=== PATIENT | female | born 1975 | race Caucasian/White ===

== ENCOUNTER 2019-03-08 09:49 | Inpatient (IN) | payer OTHER ==
[~2019-03-08] VITALS: Ht 172.7 cm; Wt 67.8 kg
[~2019-03-08 09:49] MED LIST: ACEBUTCAFT PO; ALPR1; ALPR1 PO; AMIT50; ARIP15 PO; BISA5EC PO; CLON1 PO; CRUTCH4 USE; CYCL10 PO; DULO30; DULO60 PO; GABA300 PO; HYDACE10B PO; HYDACE5; HYDACE5 PO; IBUP400 PO; NAPR500 PO; OXYACE5T PO; OXYC10ER PO; OXYC5 PO; QUET100; QUET25 PO; RANI150; SEROQUEL; SERT100 PO; SULTRIDS PO; TRAM50 PO; TRAZ50 PO; XANAX PRN; [UNRECOGNIZED DRUG - REMARK]
[2019-03-08] MEDS ORDERED: CYCL10 PO (15:12)
[2019-03-08] MEDS ORDERED: CITA20 PO (15:12)
[2019-03-08] MEDS ORDERED: ZOLP10 PO (15:12)
[2019-03-08 15:17] LABS: BASOPHILS ABSOLUTE AUTO 0.12 K/mm3 (0.00-0.23); BASOPHILS PERCENT AUTO 0 % (0-2); EOSINOPHILS PERCENT AUTO 0 % (0-6); Hematocrit 35.3 % (33.0-51.0); Hemoglobin 11.7 g/dL (11.5-16.0); IMMATURE GRAN ABSOLUTE AUTO 0.52 K/mm3 (0.00-0.10); IMMATURE GRAN PERCENT AUTO 1 % (0-1); LYMPHOCYTES ABSOLUTE AUTO 2.55 K/mm3 (0.84-5.20); LYMPHOCYTES PERCENT AUTO 6 % (21-46); MONOCYTES ABSOLUTE AUTO 3.22 K/mm3 (0.16-1.47); MONOCYTES PERCENT AUTO 7 % (4-13); Mean Corpuscular HGB 32.1 pg (26.0-34.0); Mean Corpuscular HGB Conc 33.1 g/dL (31.5-36.5); Mean Corpuscular Volume 97 fL (80-100); Mean Platelet Volume 10.1 fL (9.1-12.4); NEUTROPHILS ABSOLUTE AUTO 37.15 K/mm3 (1.96-9.15); NEUTROPHILS PERCENT AUTO 85 % (41-73); Platelet Count 381 K/mm3 (150-400); RDW Coefficient Variation 12.1 % (11.7-14.2); RDW Standard Deviation 42.9 fL (35.1-46.3); Red Blood Cell Count 3.64 M/mm3 (3.80-5.20); White Blood Cell Count 43.56 K/mm3 (4.00-11.30)
[2019-03-08 15:34] LABS: Alanine Aminotransfer (ALT/SGP 45 U/L (12-78); Albumin, Blood 4.5 g/dL (3.4-5.0); Albumin/Globulin Ratio 1.1 (0.8-1.8); Alk Phos 77 U/L (50-136); Anion Gap 12 mmol/L (6-16); Aspartate Aminotrans (AST/SGOT 105 U/L (12-37); Bilirubin, Total 0.9 mg/dL (0.1-1.0); Blood Urea Nitrogen 44 mg/dL (8-24); CO2, Blood 19 mmol/L (21-32); Calcium, Blood 9.2 mg/dL (8.5-10.1); Chloride, Blood 101 mmol/L (98-108); Creatinine, Blood 0.94 mg/dL (0.40-1.00); Glomerular Filtration Rate >60 (60-); Glucose, Blood 123 mg/dL (70-99); Potassium, Blood 4.4 mmol/L (3.5-5.5); Sodium, Blood 132 mmol/L (136-145); Total Protein, Blood 8.5 g/dL (6.4-8.2)
[2019-03-08 16:11] LABS: Source, Urine Catheter
[2019-03-08 16:22] LABS: Appearance, Urine Clear (Clear); Bilirubin, Urine Neg (Neg); Blood, Urine 3+ (Neg); Color, Urine Yellow (P-Yellow); Glucose Qualitative, Urine Neg (Neg); Ketones, Urine 4+ (Neg); Leukocyte Esterase, Urine Neg (Neg); Nitrite, Urine Neg (Neg); Protein, Urine 1+ (Neg); Specific Gravity, Urine 1.015 (1.003-1.022); Urobilinogen, Urine NORM (Normal)
[2019-03-08 16:56] LABS: Bacteria Few /hpf; Squamous Epithelial Cells Not Seen /hpf (Few); White Blood Cells, Urine 0-2 /hpf (0-5)
[2019-03-08 17:36] LABS: Ethanol (Alcohol), Blood, Med <3 mg/dL; Salicylate 3.6 mg/dL (2.8-20.0)
[2019-03-08 17:39] LABS: Acetaminophen, Random <2.0 ug/mL (10.0-30.0)
[2019-03-08 19:07] LABS: U Amphetamine Screen DETECTED; U Barbituate Screen Not Detected; U Benzodiazapine Screen Not Detected; U Buprenorphine Screen Not Detected; U Cannabinoids Screen DETECTED; U Cocaine Screen Not Detected; U Methadone Screen Not Detected; U Methamphetamine Screen DETECTED; U Opiates Screen Not Detected; U Oxycodone Screen Not Detected; U Phencyclidine Screen Not Detected; U Propoxyphene Screen Not Detected
[2019-03-08 21:58] LABS: Creatine Kinase MB 85.6 ng/mL (0.0-3.6); Creatine Kinase MB Index 2.7 (0.0-4.0)
[2019-03-09 04:07] LABS: BASOPHILS ABSOLUTE AUTO 0.06 K/mm3 (0.00-0.23); BASOPHILS PERCENT AUTO 0 % (0-2); EOSINOPHILS ABSOLUTE AUTO 0.16 K/mm3 (0.00-0.68); EOSINOPHILS PERCENT AUTO 1 % (0-6); Hematocrit 32.4 % (33.0-51.0); Hemoglobin 11.1 g/dL (11.5-16.0); IMMATURE GRAN ABSOLUTE AUTO 0.17 K/mm3 (0.00-0.10); IMMATURE GRAN PERCENT AUTO 1 % (0-1); LYMPHOCYTES ABSOLUTE AUTO 2.58 K/mm3 (0.84-5.20); LYMPHOCYTES PERCENT AUTO 10 % (21-46); MONOCYTES ABSOLUTE AUTO 1.83 K/mm3 (0.16-1.47); MONOCYTES PERCENT AUTO 7 % (4-13); Mean Corpuscular HGB 32.6 pg (26.0-34.0); Mean Corpuscular HGB Conc 34.3 g/dL (31.5-36.5); Mean Corpuscular Volume 95 fL (80-100); NEUTROPHILS ABSOLUTE AUTO 21.77 K/mm3 (1.96-9.15); NEUTROPHILS PERCENT AUTO 82 % (41-73); Platelet Count 340 K/mm3 (150-400); RDW Coefficient Variation 12.1 % (11.7-14.2); White Blood Cell Count 26.57 K/mm3 (4.00-11.30)
[2019-03-09 04:26] LABS: Alanine Aminotransfer (ALT/SGP 38 U/L (12-78); Albumin, Blood 3.7 g/dL (3.4-5.0); Alk Phos 66 U/L (50-136); Anion Gap 9 mmol/L (6-16); Aspartate Aminotrans (AST/SGOT 77 U/L (12-37); Bilirubin, Total 0.5 mg/dL (0.1-1.0); Blood Urea Nitrogen 24 mg/dL (8-24); Bun/Creatinine Ratio 46.7 (12.0-20.0); CO2, Blood 23 mmol/L (21-32); Calcium, Blood 8.1 mg/dL (8.5-10.1); Chloride, Blood 106 mmol/L (98-108); Creatinine, Blood 0.51 mg/dL (0.40-1.00); Globulin, Blood 3.8 g/dL (2.2-4.0); Glomerular Filtration Rate >60 (60-); Glucose, Blood 75 mg/dL (70-99); Potassium, Blood 3.6 mmol/L (3.5-5.5); Sodium, Blood 138 mmol/L (136-145); Total Protein, Blood 7.5 g/dL (6.4-8.2)
--- NOTE | 2019-03-09 04:44 | NUR ---
END OF SHIFT SUMMARY ASSUMED CARE OF PT FROM ED. WITH PT WHEN TRANSPORTED. PT ALERT AND TALKING WITH STAFF, EXTREMITIES MOVING WITHOUT PURPOSE/CONTROL "FLAILING". PT AWARE OF SITUATION. STATES THIS IS DUE TO "METH FROM A DIFFERENT DEALER". AT TIMES, PT IS ABLE TO CONTROL MOVEMENTS. PT GIVES APPROPRIATE VERBAL RESPONSES TO QUESTIONS. MIDDLEKAUFF CONSULT PLACED, FACE SHEET TO ED. SEIZURE PADS IN PLACE. IV FLUIDS INFUSING. PT DRINKING/EATING. HAS VOIDED IN BSC AND HAD BM. PT GIVEN SL ATIVAN. PT WAS ABLE TO SLEEP POST MEDICATION. WHEN AWAKE FOR LAB, PT APPEARS TO HAVE GREATER MUSCLE CONTROL, LESS "FLAILING". PT HAS DENIED ANY PAIN. IV ABX ADMINISTERED. PT NBOTED TO HAVE MUILTIPLE BRUISES BILATERAL LEGS, PT STATES THESE ARE FROM HER BEING "CLUMSY" AND WORKING IN THE GARDEN. PHOTOS PLACED IN CHART. CALL LIGHT WOTHIN REACH, WILL CONTINUE TO MONIT PT UNTIL SHIFT CHANGE. VSS.
== END 2019-03-09 10:50 | disposition left against medical advice (07) | DRG 917 ==
LOC: ER 09:49 → ERHOLD 16:11 → PCU 16:11 → EDBEDREQ 17:47 → PCU 20:20
PROVIDERS: Emergency Medicine; ADMIT Internal Medicine
DX: T43.621A Poisoning by amphetamines, accidental (unintentional), initial encounter (principal); G92 Toxic encephalopathy; E87.2 Acidosis; M62.82 Rhabdomyolysis; F17.200 Nicotine dependence, unspecified, uncomplicated; R31.9 Hematuria, unspecified; D72.829 Elevated white blood cell count, unspecified; T07.XXXA Unspecified multiple injuries, initial encounter; F32.9 Major depressive disorder, single episode, unspecified; F43.10 Post-traumatic stress disorder, unspecified; F39 Unspecified mood [affective] disorder; G25.5 Other chorea; R79.89 Other specified abnormal findings of blood chemistry
CPT/HCPCS: 36415; 71045; 80053; 81001; 82550; 82553; 83605; 85025; 87040; 96372; 99285-25; G0480; J0696; J1200; J7030; J7120; P9612

== ENCOUNTER 2020-09-02 13:36 | Emergency (ER) | payer OTHER ==
[~2020-09-02] VITALS: Ht 172.7 cm; Wt 81.7 kg
[~2020-09-02 13:36] MED LIST changes: +CITA20 PO; +ZOLP10 PO
[2020-09-02] MEDS ORDERED: TRAZ50 PO (13:45)
[2020-09-02 14:23] LABS: Source, Urine Clean Catch
[2020-09-02 14:29] LABS: Appearance, Urine Clear (Clear); Bilirubin, Urine Neg (Neg); Blood, Urine 2+ (Neg); Color, Urine Yellow (P-Yellow); Glucose Qualitative, Urine Neg (Neg); Ketones, Urine 4+ (Neg); Leukocyte Esterase, Urine Neg (Neg); Nitrite, Urine Neg (Neg); Protein, Urine Neg (Neg); Urobilinogen, Urine NORM (Normal); pH, Urine 6.5 (5.0-8.0)
[2020-09-02 14:31] LABS: BASOPHILS ABSOLUTE AUTO 0.07 K/mm3 (0.00-0.23); BASOPHILS PERCENT AUTO 1 % (0-2); EOSINOPHILS ABSOLUTE AUTO 0.69 K/mm3 (0.00-0.68); EOSINOPHILS PERCENT AUTO 5 % (0-6); Hematocrit 38.5 % (33.0-51.0); Hemoglobin 12.9 g/dL (11.5-16.0); IMMATURE GRAN ABSOLUTE AUTO 0.03 K/mm3 (0.00-0.10); IMMATURE GRAN PERCENT AUTO 0 % (0-1); LYMPHOCYTES ABSOLUTE AUTO 1.85 K/mm3 (0.84-5.20); LYMPHOCYTES PERCENT AUTO 14 % (21-46); MONOCYTES ABSOLUTE AUTO 1.05 K/mm3 (0.16-1.47); MONOCYTES PERCENT AUTO 8 % (4-13); Mean Corpuscular HGB 31.2 pg (26.0-34.0); Mean Corpuscular HGB Conc 33.5 g/dL (31.5-36.5); Mean Corpuscular Volume 93 fL (80-100); Mean Platelet Volume 9.6 fL (9.1-12.4); NEUTROPHILS ABSOLUTE AUTO 10.03 K/mm3 (1.96-9.15); NEUTROPHILS PERCENT AUTO 73 % (41-73); Platelet Count 619 K/mm3 (150-400); RDW Coefficient Variation 11.2 % (11.7-14.2); RDW Standard Deviation 38.4 fL (35.1-46.3); Red Blood Cell Count 4.14 M/mm3 (3.80-5.20); White Blood Cell Count 13.72 K/mm3 (4.00-11.30)
[2020-09-02 14:56] LABS: Alanine Aminotransfer (ALT/SGP 16 U/L (12-78); Albumin, Blood 3.3 g/dL (3.4-5.0); Albumin/Globulin Ratio 0.6 (0.8-1.8); Alk Phos 77 U/L (50-136); Anion Gap 9 mmol/L (6-16); Aspartate Aminotrans (AST/SGOT 40 U/L (12-37); Bilirubin, Total 0.4 mg/dL (0.1-1.0); Blood Urea Nitrogen 4 mg/dL (8-24); Bun/Creatinine Ratio 8.2 (12.0-20.0); CO2, Blood 23 mmol/L (21-32); Calcium, Blood 9.2 mg/dL (8.5-10.1); Chloride, Blood 104 mmol/L (98-108); Creatinine, Blood 0.49 mg/dL (0.40-1.00); Globulin, Blood 5.3 g/dL (2.2-4.0); Glomerular Filtration Rate >60 (60-); Glucose, Blood 109 mg/dL (70-99); Potassium, Blood 4.4 mmol/L (3.5-5.5); Sodium, Blood 136 mmol/L (136-145); Total Protein, Blood 8.6 g/dL (6.4-8.2)
[2020-09-02 15:03] LABS: Bacteria Mod /hpf; Squamous Epithelial Cells Few /hpf (Few); White Blood Cells, Urine 0-2 /hpf (0-5)
[2020-09-02 16:21] LABS: U Amphetamine Screen Not Detected; U Barbituate Screen Not Detected; U Benzodiazapine Screen Not Detected; U Buprenorphine Screen DETECTED; U Cannabinoids Screen Not Detected; U Cocaine Screen Not Detected; U Methadone Screen Not Detected; U Methamphetamine Screen Not Detected; U Opiates Screen Not Detected; U Oxycodone Screen Not Detected; U Phencyclidine Screen Not Detected; U Propoxyphene Screen Not Detected
[2020-09-02] MEDS ORDERED: Roxicodone5 MG PO (17:02)
== END 2020-09-02 17:23 | disposition home or self-care (01) ==
LOC: ER 13:36
PROVIDERS: Emergency Medicine
DX: K85.90 Acute pancreatitis without necrosis or infection, unspecified (principal); R91.8 Other nonspecific abnormal finding of lung field; Z79.899 Other long term (current) drug therapy; Z87.891 Personal history of nicotine dependence
CPT/HCPCS: 36415; 74177; 76705; 80053; 81001; 83690; 84484; 85025; 87086; 93005; 93010; 96374-59; 96375; 96376; 99284-25; J1170; J2405; J7030; Q9967

== ENCOUNTER 2020-09-23 23:31 | Inpatient (IN) | payer OTHER ==
[~2020-09-23] VITALS: Ht 172.7 cm; Wt 86.0 kg
[~2020-09-23 23:31] MED LIST changes: +Roxicodone5 MG PO
[2020-09-23 23:47] LABS: PCO2 Arterial 47.3 mmHg (35-45); PO2 Arterial 167 mmHg (80-100); pH Blood Arterial 7.34 (7.35-7.45)
[2020-09-23 23:52] LABS: BASOPHILS ABSOLUTE AUTO 0.07 K/mm3 (0.00-0.23); BASOPHILS PERCENT AUTO 0 % (0-2); EOSINOPHILS ABSOLUTE AUTO 0.48 K/mm3 (0.00-0.68); EOSINOPHILS PERCENT AUTO 3 % (0-6); Hematocrit 40.3 % (33.0-51.0); Hemoglobin 12.7 g/dL (11.5-16.0); IMMATURE GRAN ABSOLUTE AUTO 0.13 K/mm3 (0.00-0.10); IMMATURE GRAN PERCENT AUTO 1 % (0-1); LYMPHOCYTES ABSOLUTE AUTO 1.38 K/mm3 (0.84-5.20); LYMPHOCYTES PERCENT AUTO 7 % (21-46); MONOCYTES ABSOLUTE AUTO 1.46 K/mm3 (0.16-1.47); MONOCYTES PERCENT AUTO 8 % (4-13); Mean Corpuscular HGB 29.4 pg (26.0-34.0); Mean Corpuscular HGB Conc 31.5 g/dL (31.5-36.5); Mean Corpuscular Volume 93 fL (80-100); NEUTROPHILS ABSOLUTE AUTO 15.89 K/mm3 (1.96-9.15); NEUTROPHILS PERCENT AUTO 82 % (41-73); Platelet Count 684 K/mm3 (150-400); RDW Coefficient Variation 11.7 % (11.7-14.2); RDW Standard Deviation 39.8 fL (35.1-46.3); Red Blood Cell Count 4.32 M/mm3 (3.80-5.20); White Blood Cell Count 19.41 K/mm3 (4.00-11.30)
[2020-09-24 00:11] LABS: Alanine Aminotransfer (ALT/SGP 32 U/L (12-78); Albumin, Blood 2.9 g/dL (3.4-5.0); Albumin/Globulin Ratio 0.5 (0.8-1.8); Alk Phos 114 U/L (50-136); Anion Gap 9 mmol/L (6-16); Aspartate Aminotrans (AST/SGOT 114 U/L (12-37); Bilirubin, Total 0.5 mg/dL (0.1-1.0); Blood Urea Nitrogen 10 mg/dL (8-24); Bun/Creatinine Ratio 17.3 (12.0-20.0); CO2, Blood 27 mmol/L (21-32); Calcium, Blood 9.3 mg/dL (8.5-10.1); Chloride, Blood 101 mmol/L (98-108); Creatinine, Blood 0.58 mg/dL (0.40-1.00); Globulin, Blood 5.7 g/dL (2.2-4.0); Glomerular Filtration Rate >60 (60-); Glucose, Blood 124 mg/dL (70-99); Potassium, Blood 4.9 mmol/L (3.5-5.5); Sodium, Blood 137 mmol/L (136-145); Total Protein, Blood 8.6 g/dL (6.4-8.2); Troponin I <0.015 ng/mL (0.000-0.040)
[2020-09-24 00:53] LABS: Influenza A, PCR Negative (NEGATIVE); Influenza B, PCR Negative (NEGATIVE); Resp Syncytial Virus, PCR Negative (NEGATIVE); SARS-Cov-2 (COVID-19) PCR, MMC Negative (NEGATIVE)
[2020-09-24 05:39] LABS: BASOPHILS ABSOLUTE AUTO 0.03 K/mm3 (0.00-0.23); BASOPHILS PERCENT AUTO 0 % (0-2); EOSINOPHILS ABSOLUTE AUTO 0.01 K/mm3 (0.00-0.68); EOSINOPHILS PERCENT AUTO 0 % (0-6); Hemoglobin 12.1 g/dL (11.5-16.0); IMMATURE GRAN ABSOLUTE AUTO 0.09 K/mm3 (0.00-0.10); IMMATURE GRAN PERCENT AUTO 1 % (0-1); LYMPHOCYTES PERCENT AUTO 3 % (21-46); MONOCYTES ABSOLUTE AUTO 0.21 K/mm3 (0.16-1.47); MONOCYTES PERCENT AUTO 1 % (4-13); Mean Corpuscular HGB Conc 31.8 g/dL (31.5-36.5); Mean Corpuscular Volume 94 fL (80-100); Mean Platelet Volume 9.3 fL (9.1-12.4); NEUTROPHILS ABSOLUTE AUTO 17.53 K/mm3 (1.96-9.15); NEUTROPHILS PERCENT AUTO 95 % (41-73); Platelet Count 658 K/mm3 (150-400); RDW Coefficient Variation 11.7 % (11.7-14.2); RDW Standard Deviation 40.1 fL (35.1-46.3); Red Blood Cell Count 4.03 M/mm3 (3.80-5.20); White Blood Cell Count 18.47 K/mm3 (4.00-11.30)
[2020-09-24] MEDS ORDERED: Zanaflex2 M1 PO (05:57)
[2020-09-24] MEDS ORDERED: MECL12.5 PO (05:58)
[2020-09-24] MEDS ORDERED: ONDA4 PO (05:58)
[2020-09-24] MEDS ORDERED: Synthroid200 MCG (05:58)
[2020-09-24 05:59] LABS: Alanine Aminotransfer (ALT/SGP 29 U/L (12-78); Albumin, Blood 2.7 g/dL (3.4-5.0); Albumin/Globulin Ratio 0.5 (0.8-1.8); Alk Phos 116 U/L (50-136); Anion Gap 11 mmol/L (6-16); Aspartate Aminotrans (AST/SGOT 75 U/L (12-37); Bilirubin, Total 0.4 mg/dL (0.1-1.0); Blood Urea Nitrogen 9 mg/dL (8-24); Bun/Creatinine Ratio 19.9 (12.0-20.0); CO2, Blood 24 mmol/L (21-32); Chloride, Blood 102 mmol/L (98-108); Creatinine, Blood 0.45 mg/dL (0.40-1.00); Globulin, Blood 5.5 g/dL (2.2-4.0); Glomerular Filtration Rate >60 (60-); Glucose, Blood 146 mg/dL (70-99); Potassium, Blood 4.1 mmol/L (3.5-5.5); Sodium, Blood 137 mmol/L (136-145); Total Protein, Blood 8.2 g/dL (6.4-8.2)
--- NOTE | 2020-09-24 06:47 | NUR ---
ADMIT AND SHIFT SUMMARY PT TO UNIT FROM ED. C/O SEVERE ABD PAIN/GENERALIZED. PT STATES THIS IS SAME LEVEL OF PAIN X2 WEEKS. AXO. IN SINUS TACH. HTN. ON 3LNC, SPO2 >92%. RR 20-30. LUNG SOUND EXTREMELY DIMINISHED WITH CRACKLES. PAIN MEDS GIVEN PER EMAR, LITTLE EFFECT NOTED. ADMISSION COMPLETE EXCEPT HOME MED REC, PT NOT ABLE TO COMPLETE ALL THE WAY. PT UPDATED TO ROOM AND HOSPITAL PROCEDURE. PT NOW IN BED TRYING TO REST BUT DIFFICULT WITH PAIN. THIS RN ATTEMPTING TO GIVE MORE PAIN MEDS WITHIN EMAR PARAMETERS. WILL CONTINUE TO MONITOR UNTIL SHIFT CHANGE.
[2020-09-24 08:23] LABS: International Normalized Ratio 1.07; Prothrombin Time Results 11.4 Sec (9.7-11.5)
[2020-09-24 14:17] LABS: pH, Body Fluid 8.2
[2020-09-24 14:18] LABS: Automated BF RBC Count 0.056 M/mm3 (0-0); Automated BF WBC Count 3.761 K/mm3 (0-999); Body Fluid WBC Count 3761 /mm3 (0-999); RBC Count, Body Fluid 56000 /mm3 (0-0)
[2020-09-24 14:39] LABS: Albumin, Body Fluid 2.1 g/dL; Protein, Body Fluid 4.4 g/dL; Triglycerides, Body Fluid 40 mg/dL
[2020-09-24 14:41] LABS: Lactate Dehydrogenase, Body Fl 1708 U/L
[2020-09-24 15:30] LABS: Appearance, Body Fluid Hazy (Clear); Color, Body Fluid Red (None-Yellow); Total Cell Count, Body Fluid 100
--- NOTE | 2020-09-24 16:43 | NUR ---
SHIFT SUMMARY PT REMAINS PAINFUL THROUGHOUT THE DAY. PT MED PER EMAR WITH DILAUDID, FENTANYL, AND PO OXYCONTIN PER ORDERS. DISCUSSED PAIN CONTROL WITH DR ROBBINS AND DR ESPINOZA THROUGHOUT THE DAY. DRS WISH TO CONTINUE CURRENT PAIN CONTROL REGIMEN. PT REMAINS ALERT AND ORIENTED. PT ANSWERS QUESTIONS APPROPRIATELY. VITAL SIGNS STABLE. PT ON 3L O2 NC. PT HYPERTENSIVE. THORACENTESIS DONE TODAY WITH MINIMAL IMPROVEMENT IN BREATHING. IV AND POWERGLIDE SALINE LOCKED. PT UP TO BSC TO VOID. WILL CONTINUE TO MONITOR AND REPORT OFF TO ONCOMING RN.
--- NOTE | 2020-09-24 19:20 | NUR ---
ASSUMED CARE OF PT, SHE IS ALERT AND ORIENTED, C/O INCREASING PAIN AT THIS TIME, DILAUDID IS AVAILABLE PER ORDERS, WILL ADMINISTER, PT REPORTS THAT THIS HAS BEEN MAKING GOOD PROGRESS ON PAIN CONTROL. SHE DENIES CURRENT N/V AND REQUESTS APPLE JUICE. PLAN OF CARE FOR THIS SHIFT IS DISCUSSED AND PT IS AGREEABLE, WILL CONT TO MONITOR.
[2020-09-25 03:57] LABS: BASOPHILS ABSOLUTE AUTO 0.05 K/mm3 (0.00-0.23); BASOPHILS PERCENT AUTO 0 % (0-2); EOSINOPHILS ABSOLUTE AUTO 0.02 K/mm3 (0.00-0.68); EOSINOPHILS PERCENT AUTO 0 % (0-6); Hematocrit 36.4 % (33.0-51.0); Hemoglobin 11.3 g/dL (11.5-16.0); IMMATURE GRAN ABSOLUTE AUTO 0.17 K/mm3 (0.00-0.10); IMMATURE GRAN PERCENT AUTO 1 % (0-1); LYMPHOCYTES ABSOLUTE AUTO 1.02 K/mm3 (0.84-5.20); LYMPHOCYTES PERCENT AUTO 5 % (21-46); MONOCYTES ABSOLUTE AUTO 1.87 K/mm3 (0.16-1.47); MONOCYTES PERCENT AUTO 9 % (4-13); Mean Corpuscular Volume 94 fL (80-100); Mean Platelet Volume 9.4 fL (9.1-12.4); NEUTROPHILS ABSOLUTE AUTO 18.97 K/mm3 (1.96-9.15); NEUTROPHILS PERCENT AUTO 86 % (41-73); Platelet Count 626 K/mm3 (150-400); RDW Coefficient Variation 11.9 % (11.7-14.2); RDW Standard Deviation 40.6 fL (35.1-46.3); Red Blood Cell Count 3.89 M/mm3 (3.80-5.20)
[2020-09-25 04:16] LABS: Anion Gap 9 mmol/L (6-16); Blood Urea Nitrogen 8 mg/dL (8-24); Bun/Creatinine Ratio 18.3 (12.0-20.0); CO2, Blood 28 mmol/L (21-32); Calcium, Blood 8.9 mg/dL (8.5-10.1); Chloride, Blood 102 mmol/L (98-108); Creatinine, Blood 0.44 mg/dL (0.40-1.00); Glomerular Filtration Rate >60 (60-); Glucose, Blood 137 mg/dL (70-99); Potassium, Blood 3.9 mmol/L (3.5-5.5); Sodium, Blood 139 mmol/L (136-145)
--- NOTE | 2020-09-25 05:16 | NUR ---
PT REMAINS FREQUENTLY AWAKE AND PAINFUL, LOCATIONS PROVIDED FOR PAIN COINCIDE WITH AREAS OF METASTATIC LESIONS ON PET SCAN, PT IS NOTED FREQUENTLY TEARFUL AND RATES PAIN CONSISTENTLY AT 7/10, THIS WAS DISCUSSED WITH , HOSPITALIST UTILITY SYSTEMS REPAIRER OPERATOR, WELL PT'S ONCOLOGY APPOINTMENT WITH DR RINCON SCHEDULED FOR Sep AND CURRENT PAIN MEDICATION ORDERS. FENTANYL DURAGESIC PATCH WAS APPLIED THIS SHIFT PER ORDERS. PT IS ABLE TO STAND AND TRANSFER TO BSC WITH 1 PERSON SBA FOR LINE MANAGEMENT. NAUSEATED EARLY IN THIS SHIFT HOWEVER CONTROLLED WITH ZOFRAN AND PHENERGAN PER ORDERS.
--- NOTE | 2020-09-25 16:15 | NUR ---
Spiritual care note: Tana was tearful, but also quite sleepy. She asked me to pray for healing. I provided prayer and gentle assurance of God's love and attention. No family present at time of visit. She did not mention her cancer dx. I will continue to visit as schedule permits.
--- NOTE | 2020-09-25 16:36 | NUR ---
Met with patient to review her symptoms. Pt having significan pain and increasing nausea and decreased desire to take po fluids in. Pt starting to have mild headaches and feel some swelling in her right neck and ear making it uncomfortable to swallow. Some tightness with deep breath, most of her pain is in the abdomen and changes.she feels it getting harder to void and has not passed gas. she is feeling flank pain and if she is being squeezed. Assisted pt up to the commode minimal dizziness, uncofortable and difficult to void. pt states she sees doctor genna on the . Pt states she finally had ome sleep last night but has not slept in days.
--- NOTE | 2020-09-25 17:37 | NUR ---
Careful review of patients symptoms and needs with physician. Will continue to moitor medication adjustments and plan of care.
--- NOTE | 2020-09-25 18:49 | NUR ---
SHIFT SUMMARY PT IS ALERT AND ORIENTEDx4. PAIN CONTROL HAS BEEN CHALLENGING TODAY AND WAS FREQUENTLY DISCUSSED WITH DR AND PALLITIVE CARE. ADJUSTMENTS MADE TO MEDICATIONS AND PT STILL REQUIRING FREQUENT PRN ADMINISTRATION. SEE EMAR FOR MEDICATION. GAVE PT HEATED K-PAD TO ASSIST WITH COMFORT/PAIN CONTROL. PT'S BOWEL TONES REMAIN HYPOACTIVE, NO BM TODAY. PT C/O NAUSEA, WORSENED AFTER BOWEL CARE MEDS, INFORMED DR AND CHANGES WERE MADE. PT HASN'T EATEN ANY MEALS AND HAS TRIED SIPS OF BROTH AND IS DRINKING SOME FLUIDS. HRR REMAINS TACHY, NOTED HYPERTENSION THIS AFTERNOON, HOWEVER PT WAS TEARFUL AND PAINFUL WHEN VITALS WERE TAKEN. PT REMAINS ON 2L NASAL CANUAL OF 02 MAINTAINING SPO2 >92%.
--- NOTE | 2020-09-25 19:00 | NUR ---
ASSUMED CARE NOTE: ASSUMED CARE OF PT AT 1900, PT IS ALERT AND ORIENTEDX4. ABLE TO COMMUNICATE NEEDS. PT STS SHE IS IN SEVERE PAIN TO RUQ 10/10 PAIN. PT WILL BEGIN TO CRY AND IS UNABLE TO MAKE HERSELF COMFORTABLE, DISPITE PAIN MEDS BEING GIVEN AROUND THE CLOCK PER EMAR. NOTHING SEEMS TO BE BRINGING THE PAIN DOWN SHE STS. PT IS ON 2L OF 02 VIA NC, SPO2 ABOVE 90% PT STS SHE HAS BEEN HAVING NAUSEA ON/OFF TODAY, DENIES ANY AT THIS TIME. PT IS DIAPHORETIC. PT IS A ONE PERSON TO BEDSIDE COMMODE, IS VERY PAINFUL TO MOVE AROUND. BED AT LOWEST LEVEL, CALL LIGHT WITHIN REACH
--- NOTE | 2020-09-25 22:00 | NUR ---
CALLED [facility] HOSPITALIST REGARDING PT'S PAIN CONTROL. PT HAS BEEN GIVEN EVERY PAIN MEDICATION PER EMAR, WITH LITTLE TO NO EFFECT, PT DESCRIBES PAIN 10/10, SHARP, TO RUQ THAT RADIATES TO BACK. PAIN MEDS CHANGED, WILL CONTINUE TO MONITOR
[2020-09-26 03:49] LABS: BASOPHILS ABSOLUTE AUTO 0.04 K/mm3 (0.00-0.23); BASOPHILS PERCENT AUTO 0 % (0-2); EOSINOPHILS ABSOLUTE AUTO 0.06 K/mm3 (0.00-0.68); EOSINOPHILS PERCENT AUTO 0 % (0-6); Hematocrit 35.2 % (33.0-51.0); Hemoglobin 11.2 g/dL (11.5-16.0); IMMATURE GRAN ABSOLUTE AUTO 0.12 K/mm3 (0.00-0.10); IMMATURE GRAN PERCENT AUTO 1 % (0-1); LYMPHOCYTES ABSOLUTE AUTO 1.24 K/mm3 (0.84-5.20); LYMPHOCYTES PERCENT AUTO 7 % (21-46); MONOCYTES PERCENT AUTO 9 % (4-13); Mean Corpuscular HGB 29.7 pg (26.0-34.0); Mean Corpuscular HGB Conc 31.8 g/dL (31.5-36.5); Mean Corpuscular Volume 93 fL (80-100); Mean Platelet Volume 9.3 fL (9.1-12.4); NEUTROPHILS ABSOLUTE AUTO 15.85 K/mm3 (1.96-9.15); NEUTROPHILS PERCENT AUTO 84 % (41-73); Platelet Count 550 K/mm3 (150-400); RDW Coefficient Variation 11.8 % (11.7-14.2); RDW Standard Deviation 39.8 fL (35.1-46.3); Red Blood Cell Count 3.77 M/mm3 (3.80-5.20); White Blood Cell Count 18.91 K/mm3 (4.00-11.30)
--- NOTE | 2020-09-26 06:09 | NUR ---
SHIFT SUMMARY: SEE PREVIOUS NOTES. SINCE PAIN MEDICATION DOSES WHERE CHANGED PT STS SHE CAN TOLERATED HER PAIN LEVELS FOR LONGER PERIODS OF TIME. STS MORPHINE AND FENTANYL WORK TO TARGET HER PAIN AREAS. PT WAS ABLE TO SLEEP FOR A FEW HOURS THIS SHIFT. PT REMAINS ALERT AND ORIENTED. PT ON 2L OF 02 VIA NC, SPO2 ABOVE 90% BP SEEMS TO COME DOWN WHEN PAIN IS CONTROLLED. BP MEDS GIVEN ONCE THIS SHIFT. PT HAS BEEN USING BSC WITH ONE PERSON ASSIST. IS ABLE TO MOVE BETTER AT PAIN LEVEL LESS THAN 6. PT IS STEADY ON HER FEET. PT HAS BEEN REPOSITIONING SELF T/O. PT RECEVIED MEDICATION FOR NAUSEA THIS SHIFT, STS SHE NEEDS MORE MEDS TO HELP HER PASS A BM. BOWEL CARE STARTED THIS SHIFT. WILL PASS ON TO DAY SHIFT. BED AT LOWEST LEVEL, CALL LIGHT WITHIN REACH. WILL CONTINUE TO MONITOR PT UNTIL REPORT IS GIVEN TO ONCOMING SHIFT.
--- NOTE | 2020-09-26 08:50 | NUR ---
ASSUMED CARE RECEIVED REPORT FROM GUTIERREZ YEPEZ. PT IS LYING IN BED AWAKE, ALERT AND ORIENTED X 4. COMPLAINING OF PAIN IN HER ABDOMEN THAT WRAPS AROUND TO HER BACK. SHE STATES HER BREATHING HAS BEEN A LOT BETTER AFTER THE THOROCENTESIS. CALL LIGHT WITHIN REACH. BED LOW AND LOCKED, WITH HOB UP 30 DEGREES. 2L NC IN PLACE. SPO2 92-94%.
--- NOTE | 2020-09-26 12:42 | NUR ---
UPDATE DR. ESPINOZA AND DR. ROBBINS WANTED TO AVOID IV PAIN MEDICATION IF POSSIBLE, BUT PT IS IN A LOT OF PAIN, C/O 10/10 IN HER ABD/BACK/SIDES THAT IS BURNING AND THROBBING. SBP IS 18O-190 WHEN SHE IS IN PAIN. PO NARCOTICS HAVE BEEN GIVEN WITH LITTLE TO NO EFFECT. DISCUSSED THE IMPORTANCE OF NEEDING TO REDUCE IV PAIN MEDICATION FREQUENCY, PT UNDERSTANDS. IV FENTANYL AND MORPHINE GIVEN SEPARETLY TODAY PER PTs CONDITION AND LEVEL OF PAIN AND OPIATE TOLERANCE.
--- NOTE | 2020-09-26 14:22 | NUR ---
SPOKE TO DR. ROBBINS REGARDING UNCONTROLLED PAIN PT PO STEROIDS RESTARTED, CONSULT CALLED TO RADIATION ONCOLOGY. PRIMARY RN UPDATED.
--- NOTE | 2020-09-26 15:20 | NUR ---
UPDATE PT's , RAGHAVENDRA, HAS BEEN UPDATED. CURRENTLY PT IS VISITING WITH MOM, TREVOR. THE DISTRACTION HAS HAD A GREAT EFFECT ON HER PAIN AND NAUSEA (FROM AN OBJECTIVE STAND POINT, OBSERVATION). MIGUEL AND TORSTEN, RNs FROM PALLIATIVE CARE HAVE BEEN WORKING CLOSELY ON THE PTs CASE ASSISTING IN HER PAIN MANAGEMENT, AND SEEKING CONSULTATION FROM RADIOLOGY (DR. GODDARD) IN HOPE TO START RADIATION AND POSSIBLY ALLEVIATE SOME OF THE IMMENSE PAIN SHE HAS BEEN FEELING. BOTH MIGUEL AND TORSTEN HAVE BEEN IN COMMUNICATION WITH DR. ROBBINS ( WELL MYSELF) AND HAVE SUGGESTED A MORE EFFECIENT PAIN MEDCIATION REGIMEN. THE GOAL IS TO CONTROL THE PAIN SHE IS HAVING - TO LOW POSSIBLE, BUT AT LEAST UNDER A 6/10 WHILE NOT USING IV NARCOTICS. WILL CONTINUE TO MONITOR.
--- NOTE | 2020-09-26 15:38 | NUR ---
Pt resting in bed upon arrival. Pt reports 7/10 pain in her abdomen. Discussed potential changes in pain regimen to improve pain. Pt is agreeable. Collaborated with Dr Choi, PC GUTIERREZ Danielle, hospital pharmacist Baldemar, and Bedside RN Ivette. Goal is to reduce pain regimen to 1 long acting pain medication and to wean break through pain medication to 1. Placed order for Oxycontin CR 80mg PO every 8 hours for pain, D/C Fentanyl patch, and D/C Fentanyl IV per V/O from Dr Choi. Plan: Re-assess tomorrow to consider D/C of morphine IV and possiblity to add Gabapentin if needed. Goal is to reduce immediate release/breakthrough to one medication.
--- NOTE | 2020-09-26 15:57 | NUR ---
Comprehnsive team review of pt for plan of care and complex symptom managment. Doctor Clarke consulted on palliation and symptom care. review dosing and reduction of sedation with pain medication adjustment. Cytology report reviewed by physicians and caner care plan initiated. Theraputic time with patient and her mother will contine with follow up care and find adjuctive pain therapies. chaplian service to see pt for grief and coping.
--- NOTE | 2020-09-26 18:09 | NUR ---
Spiritual care note: Tana had just been medicated for pain, so she was a bit sleepy, but said she felt better. She admits to me that she thinks she will from cancer. She knows "its bad." Tana is mostly worried about leaving her mom and . She is very concerned about how this dx is effecting her family. "My doesn't know how to handle this." Tana and I seem to have an easy rapport and she responded well to gentle guidence and assurance of continued emotional support. I provided theraputic listening, emotional affirmation, and prayer to good effect. No family present at time of visit. I will copntinue to follow Tana in coming days. She will benefit from continued mortgage counselor.
--- NOTE | 2020-09-26 18:35 | NUR ---
SHIFT SUMMARY SEE PREVIOUS NOTES FOR UPDATES T/O SHIFT. PT CONTINUES TO STRUGGLE WITH PAIN, BUT PALLIATIVE CARE, DR. ROBBINS + DR. ESPINOZA HAVE UPDATED THE MEDICATION DOSING, AND HAVE WORKED OUT A PLAN THAT WILL HOPEFULLY BE MORE EFFECTIVE FOR CONSISTENT PAIN RELIEF. THE GOAL CONTINUES TO BE TO DECREASE USE OF IV NARCOTICS. DR. GODDARD STATED HE WOULD POSSIBLY STOP BY PT's ROOM TONIGHT OR TOMORROW MORNING - AFTER HE LOOKS AT THE SCANS AND DISCUSSES WITH DR. RINCON. DR. RINCON WILL ALSO STOP BY EITHER TONIGHT OR TOMORROW. THE PROVIDER DC'd GABAPENTIN FOR TONIGHT, SHE IS ON TRAZADONE, OXYCONTIN, AND OTHERS - AND DOESN'T WANT TO OVER-SEDATE; WILL REEVALUATE TOMORROW. PAIN MANAGEMENT IN GENERAL ALONG WITH MANY ASPECTS OF HER CARE WILL BE REEVALUATED. STEROIDS WERE DCd EARLIER TODAY, BUT WERE ADDED BACK ON. BED LOW AND LOCKED. PT USES CALL LIGHT APPROPRIATELY, AND IS IN REACH.
--- NOTE | 2020-09-26 19:15 | NUR ---
ASSUMED CARE OF PT FROM GUTIERREZ JALLOH. PT CONTINUES TO BE VERY PAINFUL DESPITE PO AND IV MEDICATIONS. SHE IS DRINKING PLENTY OF FLUIDS, BUT REFUSES FOOD. HER BREATHING IS SOMEWHAT LABORED AND TACHYPNEIC. SHE IS ON NC AT 2LMP.
--- NOTE | 2020-09-26 22:50 | NUR ---
PT IS RESTING QUIETLY WITH EYES CLOSED.
--- NOTE | 2020-09-27 04:15 | NUR ---
PT AWAKENS AND IS TEARFUL AND CRYING IN PAIN. SHE IS ALSO NAUSEATED, SO ZOFRAN AND DILAUDID ARE GIVEN FOR BREAKTHROUGH PAIN. PT HAD SLEPT SOUNDLY FOR ABOUT 4 HOURS.
[2020-09-27 04:19] LABS: BASOPHILS ABSOLUTE AUTO 0.04 K/mm3 (0.00-0.23); BASOPHILS PERCENT AUTO 0 % (0-2); EOSINOPHILS ABSOLUTE AUTO 0.02 K/mm3 (0.00-0.68); EOSINOPHILS PERCENT AUTO 0 % (0-6); Hematocrit 37.1 % (33.0-51.0); Hemoglobin 11.7 g/dL (11.5-16.0); IMMATURE GRAN ABSOLUTE AUTO 0.16 K/mm3 (0.00-0.10); IMMATURE GRAN PERCENT AUTO 1 % (0-1); LYMPHOCYTES ABSOLUTE AUTO 1.29 K/mm3 (0.84-5.20); LYMPHOCYTES PERCENT AUTO 6 % (21-46); MONOCYTES ABSOLUTE AUTO 1.83 K/mm3 (0.16-1.47); MONOCYTES PERCENT AUTO 9 % (4-13); Mean Corpuscular HGB 29.5 pg (26.0-34.0); Mean Corpuscular HGB Conc 31.5 g/dL (31.5-36.5); Mean Corpuscular Volume 94 fL (80-100); Mean Platelet Volume 9.4 fL (9.1-12.4); NEUTROPHILS ABSOLUTE AUTO 18.21 K/mm3 (1.96-9.15); NEUTROPHILS PERCENT AUTO 85 % (41-73); Platelet Count 615 K/mm3 (150-400); RDW Coefficient Variation 11.7 % (11.7-14.2); RDW Standard Deviation 40.2 fL (35.1-46.3); Red Blood Cell Count 3.97 M/mm3 (3.80-5.20); White Blood Cell Count 21.55 K/mm3 (4.00-11.30)
[2020-09-27 04:39] LABS: Alanine Aminotransfer (ALT/SGP 29 U/L (12-78); Albumin, Blood 2.5 g/dL (3.4-5.0); Albumin/Globulin Ratio 0.5 (0.8-1.8); Alk Phos 110 U/L (50-136); Anion Gap 7 mmol/L (6-16); Aspartate Aminotrans (AST/SGOT 86 U/L (12-37); Bilirubin, Total 0.3 mg/dL (0.1-1.0); Blood Urea Nitrogen 12 mg/dL (8-24); Bun/Creatinine Ratio 23.2 (12.0-20.0); CO2, Blood 34 mmol/L (21-32); Calcium, Blood 9.7 mg/dL (8.5-10.1); Chloride, Blood 97 mmol/L (98-108); Creatinine, Blood 0.52 mg/dL (0.40-1.00); Globulin, Blood 5.5 g/dL (2.2-4.0); Glomerular Filtration Rate >60 (60-); Glucose, Blood 114 mg/dL (70-99); Sodium, Blood 138 mmol/L (136-145)
--- NOTE | 2020-09-27 06:49 | NUR ---
SHIFT SUMMARY: PT'S PAIN IS MANAGED MOSTLY WITH PO MEDICATION WITH 2 DOSES OF IV DILAUDID FOR BREAKTHROUGH PAIN. PT SLEPT SOUNDLY FOR 4 HOURS AND HAD SHORTER NAPS THROUGHOUT NIGHT. FIRST BM IN SEVERAL DAYS WAS MOSTLY MUCOUS. PT IS TAKING ONLY PO LIQUIDS, REFUSES FOOD. ON NC AT 2L FOR COMFORT.
--- NOTE | 2020-09-27 08:05 | NUR ---
INITIAL ASSESSMENT PATIENT ALERT AND ORIENTED X 4. PATIENT ANXIOUS, FEARFUL, TEARFUL. PATIENT AFEBRILE. PATIENT 1 PERSON ASSIST TO BSC. PATIENT BEING GIVEN PRN PAIN MEDICATIONS FOR COMPLAINT OF PAIN IN ABDOMEN. LUNGS CLEAR IN UPPER LOBES AND DIMINISHED IN LOWER LOBES. PATIENT HAS OCCASIONAL NONPRODUCTIVE COUGH. PATIENT SATTING 90% AND GREATER ON 3 L NC. HR 121. BP 160/ 93. ABDOMEN MODERATELY DISTENDED, TENDER, WITH HYPOACTIVE BS NOTED. PATIENT GIVEN PRN ANTIEMETIC FOR COMPLAIN OF NAUSEA. RECEIVED REPORT THAT PATIENT HAS BEEN REFUSING FOOD. PATIENT INFORMED DR. ESPINOZA AND NURSE THAT SHE IS LACTOSE INTOLERANT. WNL. SCATTERED BRUISING T/O. PATIENT IS REPOSITIONING SELF IN BED. IVS FLUSHED AND SALINE LOCKED. BED LOW, CALL LIGHT IN REACH. WILL CONTINUE TO MONITOR PATIENT FREQUENTLY THROUGHOUT SHIFT.
--- NOTE | 2020-09-27 11:33 | NUR ---
Pt still painfull and tight in abdomen but feeing less uncomfortable. tearfull over her visit with oncologist. Review some basics of care and a plan and having a family memeber help with plan of care. Will contiue visits for symptom management and support.
--- NOTE | 2020-09-27 12:53 | NUR ---
SHIFT SUMMARY PATIENT REMAINED ALERT AND ORIENTED, AFEBRILE. PATIENT GIVEN PRN DILAUDID AND MORPHINE, IN ADDITION TO SCHEDULED OXYCONTIN FOR COMPLAINTS OF ABDOMINAL PAIN. PATIENT STARTED ON PRN ATIVAN TO HELP WITH ANXIETY RELATED TO DIAGNOSIS. PATIENT HAS BEEN TEARFUL AND FEARFUL. PATIENT WEAK; 1 PA TO BSC. PATIENT HAS REMAINED SATTING 90% AND GREATER ON 2 TO 3 L NC. PATIENT HAS CONTINUED TO HAVE OCCASIONAL, NONPRODUCTIVE COUGH. PATIENT REMAINS TACHYCARDIC; HR 116 TO 121. SBP 160S TO 170S BEFORE PAIN AND ANXIETY MEDICATIONS. ABDOMEN REMAINS MODERATELY DISTENDED, TENDER. PATIENT DID EAT A LITTLE LUNCH. PATIENT GIVEN PRN PHERNERGEN THIS AM FOR NAUSEA. PATIENT PLACED ON LACTULOSE INTOLERANCE DIET THIS AM. LAST BM ON THE . PATIENT HAD NOT VOIDED YET THIS SHIFT; PATIENT ENCOURAGED TO VOID AND VOIDED 100 MLS OF DARK COLORED URINE. BLADDER SCAN SHOWED [address] ESPINOZA INFORMED AND STATED TO TRY AND ENCOURAGE PO FLUID INTAKE AND IF UNABLE TO DRINK BECAUSE OF NAUSEA THEN CALL HER FOR MAINTENANCE FLUID ORDER. NO CHANGE TO SKIN. PATIENT REMAINS REPOSITIONING SELF IN BED. REPORT HAS BEEN GIVEN TO ASSUMING MEDICAL FLOOR NURSE.
--- NOTE | 2020-09-27 13:12 | NUR ---
PATIENT TRANSFERRED TO MEDICAL FLOOR, ROOM 324. ALL BELONGINGS SENT WITH PATIENT.
--- NOTE | 2020-09-27 16:37 | NUR ---
CHEMO INFUSION PT EDUCATION HANDOUTS ABOUT CHEMO MEDS QUESTIONS ANSWERED. DISCUSSED S/SX OF REACTIONS TO REPORT TO RN - PT VERB UNDERSTANDING. LEFT UPPER ARM POWERGLIDE PATENT, + BLOOD RETURN AND FLUSHES EASILY.
--- NOTE | 2020-09-27 18:22 | NUR ---
Spiritual care note: Tana was tearful when I met with her this morning. Her oncologist had met with her earlier and she was overwhelmed with fear. She responded well to getle ip counsel and appeared to benefit from spiritual direction/prayer. She smiled easily by conclusion of visit. She still appears quite tired and a bit fuzzy mentally. She would benefit from family being present with her when physicians explain POC. I will continue to follow.
--- NOTE | 2020-09-27 18:30 | NUR ---
CHEMO COMPLETED PT BECKI WELL, MEDICATED FEQUENTLY FOR COMPLAINTS OF PAIN. SPOKE WITH DR ESPINOZA ABOUT PTS ELEVATED BP- NO NEW ORDERS. POWERGLIDE LEFT UPPER ARM PATENT T/O INFUSION, + BLOOD RETURN AND FLUSHES EASILY.
--- NOTE | 2020-09-27 19:36 | NUR ---
ARRIVAL TO UNIT: LATE ENTRY: 13:15 PATIENT ARRIVED TO UNIT MOANING AND WRIGGLING IN THE BED RELATED TO PAIN. MEDICATED PER PRNS. NOTIFIED RT OF NEED FOR CONTINUOUS PULSE OXIMETER. PROVIDED PATIENT WITH COOL CLOTHS AND A COOL K-PAD. PATIENT APPRECIATIVE. PATIENT ALERT AND ORIENTED X4. PATIENT ABLE TO TRANSFER SELF TO THE BED. PATIENT DENIES DIZZINESS OR CHEST PAIN. PATIENT IS TACHYCARDIC AND LUNG SOUNDS DIMINISHED THROUGHOUT.
--- NOTE | 2020-09-27 19:39 | NUR ---
END OF SHIFT SUMMARY: PATIENT PAINFUL THROUGHOUT THE END OF THE SHIFT, HOWEVER, STARTED THE PATIENT ON A ROUTINE OF RECEIVING THE PO PAIN MEDICATIONS REGULARLY ALLOWED PER ORDERS AND ALTERNATING WITH IV PAIN MEDICATIONS. PATIENT ABLE TO HAVE SOME PAIN RELIEF THIS EVENING. PATIENT WENT FROM SWEATING AND MOANING IN PAIN, TO REQUESTING SOME FOOD. PATIENT ABLE TO TOLERATE A TURKEY SANDWICH. PATIENT ABLE TO LIE CALMLY AND WATCH SOME TELEVISION. PATIENT RECIEVED FIRST DOSE OF CHEMO THIS EVENING (SEE RN NOTES). PATIENT IS ANXIOUS AND TEARFUL AT TIMES. PROVIDED REASSURANCE AND PRESENCE WITH THE PATIENT. PATIENT APPRECIATED. PATIENT'S IN TO VISIT THIS EVENING.
--- NOTE | 2020-09-28 06:31 | NUR ---
SHIFT SUMMARY: REMAINS TACHYCARDIC. HR INCREASED WITH ACTIVITY TO 120'S. 90'S-110'S WHEN RESTING. PT NEAR CONSTANTLY PAINFUL TONIGHT WHILE AWAKE. MEDICATED PER EMAR WITH SMALL IMPROVEMENTS IN PAIN. PAIN IS LOCATED IN UPPER ABD, WRAPS AROUND L SIDE, LOW BACK AND R HIP AND BUTTOCKS. PT WAS ABLE TO SLEEP SHORT INTERVALS TONIGHT. HAS MAINTAINED 02 SATS >92% ON 3L VIA NC. RESPS EVEN AND NON-LABORED. UP TO BSC W/ 1 ASSIST TO HELP MANAGE TUBES AND LINES. A/OX3, COMMUNICATES NEEDS. FREQUENTLY TEARFUL. WCTM.
[2020-09-28 07:55] LABS: BASOPHILS ABSOLUTE AUTO 0.04 K/mm3 (0.00-0.23); BASOPHILS PERCENT AUTO 0 % (0-2); EOSINOPHILS ABSOLUTE AUTO 0.01 K/mm3 (0.00-0.68); EOSINOPHILS PERCENT AUTO 0 % (0-6); Hematocrit 35.7 % (33.0-51.0); Hemoglobin 11.3 g/dL (11.5-16.0); IMMATURE GRAN ABSOLUTE AUTO 0.18 K/mm3 (0.00-0.10); IMMATURE GRAN PERCENT AUTO 1 % (0-1); LYMPHOCYTES ABSOLUTE AUTO 0.86 K/mm3 (0.84-5.20); LYMPHOCYTES PERCENT AUTO 3 % (21-46); MONOCYTES ABSOLUTE AUTO 1.98 K/mm3 (0.16-1.47); MONOCYTES PERCENT AUTO 8 % (4-13); Mean Corpuscular HGB 29.4 pg (26.0-34.0); Mean Corpuscular HGB Conc 31.7 g/dL (31.5-36.5); Mean Corpuscular Volume 93 fL (80-100); NEUTROPHILS PERCENT AUTO 88 % (41-73); Platelet Count 618 K/mm3 (150-400); RDW Coefficient Variation 11.8 % (11.7-14.2); Red Blood Cell Count 3.85 M/mm3 (3.80-5.20); White Blood Cell Count 24.97 K/mm3 (4.00-11.30)
[2020-09-28 08:11] LABS: Anion Gap 7 mmol/L (6-16); Blood Urea Nitrogen 13 mg/dL (8-24); Bun/Creatinine Ratio 30.1 (12.0-20.0); CO2, Blood 33 mmol/L (21-32); Calcium, Blood 9.6 mg/dL (8.5-10.1); Chloride, Blood 96 mmol/L (98-108); Creatinine, Blood 0.43 mg/dL (0.40-1.00); Glomerular Filtration Rate >60 (60-); Glucose, Blood 136 mg/dL (70-99); Potassium, Blood 4.2 mmol/L (3.5-5.5); Sodium, Blood 136 mmol/L (136-145)
--- NOTE | 2020-09-28 09:41 | NUR ---
FENTANYL PATCH RECEIVED VERBAL ORDER FROM DR. ESPINOZA TO ADD 25 MCG FENTANLY PATCH Q3D AND FAMOTIDINE 20 MG DAILY. ORDERS UPDATED.
--- NOTE | 2020-09-28 11:02 | NUR ---
Pt just getting back to bed from using BSC upon my arrival. Pt sitting on edge of bed attempting to put her oxygen on. Assisted Pt with appropriate placement of oxygen NC. Pt reporting 10/10 pain. Pt reports the pain worsens with exertion. Provided gentle education on deep breathing exercises and imagery technique. Consulted with hospital pharmacist Catherine and reviewed long acting pain and breakthrough pain medication. Recommendations are to increase oxycontin CR to 100mg Q [address] Barrera and discussed case. Placed order for Oxycontin 100mg PO every 8 hours, D/C Fentanyl Patch, and D/C Oxycontin 80mg Q 8 hours per V/O from Dr Barrera. Called and spoke with Chaplain Martinez and discussed case.
--- NOTE | 2020-09-28 12:06 | NUR ---
PROCALCITONIN D/C PATIENT GOING ON COMFORT CARE/HOSPICE. PER V.O. FROM DR. JEF DC PROCALCITONIN.
--- NOTE | 2020-09-28 13:21 | NUR ---
Chaplain Martinez reports Pt does not remember information provided to her by Dr Hale yesterday and family are on their way in. Pt and family may benefit from continued conversation. Pt resting in bed upon arrival. Family at bedside. Pt's spouse Stan, Pt's mother Madai, and Madai's friend Eugenia are present. Baseball Inspector [employer] Martinez present as well. Assessed Pt and family's understanding of diagnosis and plan of care. Discussed option including current plan of care and option for hospice. Educated on hospice philosophy with V/U made by Pt and family. Dr Vuong arrives, discusses treatment plan and provides education regarding treatment. Options discussed including continued treatment and hospice as options. Pt and family discusses options with Pt and family choosing hospice. Discussed code status and educated on life sustaining treatments. Pt agreeable to complete POLST. Assisted Pt with completing POLST. Pt chooses DNR and Comfort Measures Only and signs POLST. Confirmed Pt's understanding of comfort measures with Pt electing to start comfort care during the remaining time of her hospital stay. Discussed hospice agencies to choose from with Pt choosing [facility]. Continued therapeutic listening and answered questions. No other concerns reported at this time. Spoke with Dr Vuong and discussed case. Placed orders for comfort care, comfort care order set, D/C maintenance medications and chemo medication per V/O from Dr Vuong. Spoke with Bedside RN Nguyen and discussed case. Spoke with Roz Lunsford and reported Pt's wishes for [facility]. Placed Hospice Referral Palliative Care will remain available for symptom management.
--- NOTE | 2020-09-28 17:01 | NUR ---
Spiritual care note: I was present at bedside for meeting with physician, palliative care, pt and family. Anoop with palliative care did a great job explaining to family Tana's illness and poor prognosis. Physician arrived and explained as well. Options were provided. Pt and family decided to pursue hospice services and comfort care. Tana was often tearful and family was clearly loving and supportive. Tana stated that she wanted to be home and free from pain. Family expressed understanding of hospice goals and philosophy. I provided gentle guidence, clarification and facilitated prayer with family at conclusion of visit. Family (Tana'e spouse, mom, and life-long friend) were appreciative. Hattie expressed gratitude for emotional support. When I came by later in the day, Tana was sleeping soundly at last. I will remain available.
--- NOTE | 2020-09-28 19:20 | NUR ---
Shift Summary A/Ox4, pleasant and cooperative. Medicated for 8-10/10 pain per EMAR. This provided minimal relief throughout shift. Patient was able to sleep for approximately 2.5 hours before waking and moaning in pain again. Refused lunch and dinner. Also medicated for nausea with good effect. Chemo d/c today, patient and family has decided to transition to comfort care. Osman placed per patient request, patent and draining, tolerated well. Report given to oncoming RN.
--- NOTE | 2020-09-28 19:45 | NUR ---
COMFORT CARE STATUS. PT WAS SLEEPING AT START OF SHIFT BUT THEN WOKE UP MOANING W/PAIN AND REPORTING NAUSEA. MORPHINE AND ZOFRAN ADMINISTERED. PT REPORTING IMPROVED SYMPTOMS AND APPEARS TO BE MORE RELAXED AT THIS TIME.
--- NOTE | 2020-09-29 04:11 | NUR ---
SHIFT SUMMARY: COMFORT CARE STATUS. PT IS A/OX3 WHILE AWAKE. SOMEWHAT SLOWED RESPONSES. REPORTS BETTER PAIN MANAGEMENT W/ CURRENT MED REGIMEN AND PRN'S. NOTED TO BE SLEEPING SHORTLY AFTER RECEIVING PRN MORPHINE DOSES. SLEPT INTERMITTENTLY TONIGHT. MAKES NEEDS KNOWN. FC PATENT AND DRAINING YELLOW URINE TO GRAVITY. PT REPORTS UNSUCCESSFUL ATTEMPT AT BM TONIGHT. WILL OFFER PRN BOWEL MED THIS AM. NO ACUTE OVERNIGHT CHANGES.
--- NOTE | 2020-09-29 05:10 | NUR ---
PT IS ABLE TO REPOSITION HERSELF IN BED INDPENDENTLY AND HAS ORAL SWABS AT THE BEDSIDE TO DO HER OWN ORAL CARE.
[2020-09-29] MEDS ORDERED: ATROPINE SULFATE (09:19)
[2020-09-29] MEDS ORDERED: Acetaminophen325 M1 PO (09:19)
[2020-09-29] MEDS ORDERED: ATROPINE SULFATE SL (09:21)
[2020-09-29] MEDS ORDERED: DEXA6 PO (09:22)
[2020-09-29] MEDS ORDERED: BISA10S PR (09:22)
[2020-09-29] MEDS ORDERED: FAMO20 PO (09:27)
[2020-09-29] MEDS ORDERED: LORA1 PO (09:29)
[2020-09-29] MEDS ORDERED: MIRALAX17 GM PO (09:35)
[2020-09-29] MEDS ORDERED: OLAN5 PO (09:35)
[2020-09-29] MEDS ORDERED: SENN187 PO (09:35)
[2020-09-29] MEDS ORDERED: TRANSDERM-SCOP1 EAC1 TD (09:35)
--- NOTE | 2020-09-29 11:42 | NUR ---
therputic visit with patient. Brief instruction to pt mother on how day will go for hospice set up.
--- NOTE | 2020-09-29 15:05 | NUR ---
Discharge Summary A/Ox3, pleasant and cooperative with care. Patient has been requesting frequent breakthrough medication this shift for uncontrolled pain (see EMAR). Discharging to home with hospice and [facility] in place. Meds faxed to [facility]. Four hard scripts given to patient. Reviewed discharge paperwork with patient and mom at bedside, questions were answered to their satisfaction. PG removed, WNL. Friend arrived for transport home. Personal belonings sent home. Copy of discharge paperwork given to patient. Escorted by DROP TESTER via w/c.
== END 2020-09-29 14:25 | disposition hospice, home (50) | DRG 871 ==
LOC: ER 23:31 → ICUE 23:32 → ERHOLD 23:32 → ICUE 09-24 05:45 → MEDS 09-27 13:08 → ENPENDDIS 09-29 08:33 → MEDS 09-29 14:25
PROVIDERS: Emergency Medicine; Student in an Organized Health Care Education/Training Program; ADMIT Internal Medicine
PROC: 0W993ZZ Drainage of Right Pleural Cavity, Percutaneous Approach (ICD-10-PCS; principal; 2020-09-24)
DX: A41.9 Sepsis, unspecified organism (principal); J96.01 Acute respiratory failure with hypoxia; C34.31 Malignant neoplasm of lower lobe, right bronchus or lung; C78.7 Secondary malignant neoplasm of liver and intrahepatic bile duct; E87.2 Acidosis; J91.0 Malignant pleural effusion; J98.11 Atelectasis; M79.7 Fibromyalgia; Z51.5 Encounter for palliative care; Z66 Do not resuscitate; I16.0 Hypertensive urgency; D69.6 Thrombocytopenia, unspecified; B19.20 Unspecified viral hepatitis C without hepatic coma; D21.9 Benign neoplasm of connective and other soft tissue, unspecified; F32.9 Major depressive disorder, single episode, unspecified; F43.10 Post-traumatic stress disorder, unspecified
CPT/HCPCS: 0241U; 32555; 36415; 36600; 71045; 71260; 74177; 76705; 80048; 80053; 82042; 82378; 82803; 83605; 83615; 83880; 83986; 84157; 84478; 84484; 85025; 85610; 85730; 87040; 87070; 87205; 88108; 88305; 88341; 88342; 89051; 93005; 93010; 94644; 94660; 96365; 96366; 96375; 96376; 97110; 97162; 99291-25; A9270; C1751; G0378; J1100; J1170; J1650; J2060; J2270; J2405; J2550; J2930; J3010; J3475; J7050; J7060; J9045; J9181; Q9967